=== PATIENT | male | born 1995 | race American Indian/Alaskan Native ===

== ENCOUNTER 2017-02-26 02:58 | Emergency (ER) | payer SELFPAY ==
[2017-02-26 03:53] VITALS: BP 114/71
== END 2017-02-26 09:00 | disposition left against medical advice (07) ==
LOC: ED 02:58
DX: R21 Rash and other nonspecific skin eruption (principal); Z53.21 Procedure and treatment not carried out due to patient leaving prior to being seen by health care provider

== ENCOUNTER 2018-01-06 03:38 | Emergency (ER) | payer SELFPAY | END 2018-01-06 03:40 | disposition left against medical advice (07) | LOC: ED 03:38 | DX: R07.9 Chest pain, unspecified (principal); Z53.21 Procedure and treatment not carried out due to patient leaving prior to being seen by health care provider ==

== ENCOUNTER 2019-03-06 23:12 | Emergency (ER) | payer OTHER ==
--- NOTE | 2019-03-07 03:47 | Emergency Department Report ---
<KEVIN BONILLA - Last Filed: 03/07/19 03:42> ED Male HPI - General Chief complaint: Urogenital-Male Stated complaint: BURN WHEN PEE Time Seen by Provider: 03/07/19 03:21 Source: patient Mode of arrival: Ambulatory Limitations: No Limitations - History of Present Illness Initial comments: 23-year-old -Citizen Of [place] male patient was department complaining of having some dysuria started about 4 weeks ago off and on associated with some scant white discharge, but unsure of his an STD of it is something that he's been experiencing at the has sexual intercourse. Reports no penile rashes. She reports no testicular swelling reports no inguinal pain reports no fever, chills, sweats, no hematuria, no no dysuria. He is an uncircumcised male has easily retractable foreskin prefaces good hygiene after interaction. States he has sex with his girlfriend who is previous girlfriend about 4 weeks ago was found to be playful and having head diagnosed with chlamydia and gonorrhea. They were treated, however, he found out that she actually did not get treated and had symptoms with her again is worried he may have come in contact with with the same STD about 4 weeks ago. MD Complaint: dysuria Severity: mild Quality: burning Consistency: constant Improves with: none Worsens with: none discharge. denies: urinary retention, blood in urine, nausea/vomiting, incontin ence - Related Data Previous Rx's Medication Instructions Recorded Last Taken Type Cyclobenzaprine [Flexeril] 10 mg PO TID PRN #30 tablet 12/17/18 Unknown Rx Menthol/Camphor [[place] 1 applicatio TP QID PRN #1 tube 12/17/18 Unknown Rx Ointment] Naproxen 500 mg PO BID PRN #30 tablet 12/17/18 Unknown Rx metroNIDAZOLE [Flagyl] 2,000 mg PO ONCE #4 tablet 03/07/19 Unknown Rx Allergies Allergy/AdvReac Type Severity Reaction Status Date / Time No Known Allergies Allergy Verified 12/17/18 04:16 ED Review of Systems Constitutional: denies: chills, fever Eyes: denies: eye pain, eye discharge, vision change ENT: denies: ear pain, throat pain Respiratory: denies: cough, shortness of breath, wheezing Cardiovascular: denies: chest pain, palpitations Endocrine: no symptoms reported Gastrointestinal: denies: abdominal pain, nausea, diarrhea Genitourinary: denies: urgency, dysuria Musculoskeletal: denies: back pain, joint swelling, arthralgia Skin: denies: rash, lesions Neurological: denies: headache, weakness, paresthesias Psychiatric: denies: anxiety, depression Hematological/Lymphatic: denies: easy bleeding, easy bruising ED Past Medical Hx - Past Medical History Additional medical history: GERD symptoms no Dx - Social History Smoking Status: Never Smoker Substance Use Type: None - Medications Home Medications: Home Medications Medication Instructions Recorded Confirmed Last Taken Type Cyclobenzaprine [Flexeril] 10 mg PO TID PRN #30 tablet 12/17/18 Unknown Rx Menthol/Camphor [[place] 1 applicatio TP QID PRN #1 tube 12/17/18 Unknown Rx Ointment] Naproxen 500 mg PO BID PRN #30 tablet 12/17/18 Unknown Rx metroNIDAZOLE [Flagyl] 2,000 mg PO ONCE #4 tablet 03/07/19 Unknown Rx ED Physical Exam - General Limitations: No Limitations General appearance: alert, in no apparent distress - Head Head exam: Present: atraumatic, normocephalic - Eye Eye exam: Present: normal appearance, PERRL, EOMI Pupils: Present: normal accommodation - ENT ENT exam: Present: normal exam, mucous membranes moist, TM's normal bilaterally - Neck Neck exam: Present: normal inspection, full ROM. Absent: tenderness, meningismus, lymphadenopathy, thyromegaly - Respiratory Respiratory exam: Present: normal lung sounds bilaterally. Absent: respiratory distress, wheezes, rales, chest wall tenderness, accessory muscle use, decreased breath sounds - Cardiovascular Cardiovascular Exam: Present: regular rate, normal rhythm. Absent: bradycardia, tachycardia, systolic murmur, diastolic murmur, rubs, gallop - GI/Abdominal GI/Abdominal exam: Present: soft, normal bowel sounds. Absent: distended, tenderness, guarding, hyperactive bowel sounds, hypoactive bowel sounds - Rectal Rectal exam: Present: deferred - exam: Present: other (no inguinal lymphadenopathy) - Extremities Exam Extremities exam: Present: normal inspection, full ROM, normal capillary refill - Back Exam Back exam: Present: normal inspection, full ROM. Absent: CVA tenderness (R), CVA tenderness (L) - Neurological Exam Neurological exam: Present: alert, oriented X3 - Psychiatric Psychiatric exam: Present: normal affect, normal mood - Skin Skin exam: Present: warm, dry, intact, normal color. Absent: rash ED Disposition Clinical Impression: Dysuria Disposition: DC-01 TO HOME OR SELFCARE Is pt being admited?: No Does the pt Need Aspirin: No Condition: Stable Instructions: Dysuria (ED) Prescriptions: metroNIDAZOLE [Flagyl] 2,000 mg PO ONCE #4 tablet Referrals: [facility] [Provider Group] - 3-5 Days [facility] [Outside] - 3-5 Days Forms: Work/School Release Form(ED) <SHERRIE DAMICO - Last Filed: 03/25/19 12:31> ED Review of Systems ROS: Stated complaint: BURN WHEN PEE Other details as noted in HPI ED Course Vital Signs 03/06/19 03/07/19 03/07/19 23:18 00:50 04:03 Temperature 98.5 F 98.5 F Pulse Rate 70 77 68 Respiratory 18 18 15 Rate Blood Pressure 108/69 108/69 O2 Sat by Pulse 100 100 100 Oximetry ED Medical Decision Making - Differential Diagnosis uti, std Critical care attestation.: If time is entered above; I have spent that time in minutes in the direct care of this critically ill patient, excluding procedure time. ED Disposition Is pt being admited?: No Does the pt Need Aspirin: No
[2019-03-07 19:54] VITALS: BP 108/69
== END 2019-03-07 04:05 | disposition home or self-care (01) ==
LOC: ED 23:12
DX: R30.0 Dysuria (principal)
CPT/HCPCS: 99282

== ENCOUNTER 2019-04-04 11:21 | Emergency (ER) | payer SELFPAY ==
[2019-04-04 11:27] VITALS: BP 122/81
--- NOTE | 2019-04-04 11:27 | Emergency Department Report ---
Chief Complaint: Urogenital-Male Stated Complaint: URINATION SWAIN Time Seen by Provider: 04/04/19 11:26 - HPI History of Present Illness: This is a 23 y.o. male that presents to the ER with dysuria and penile discharge for 1 month. Patient states he was seen in this ER 1 month ago and prescribed metronidazole. He completed all medication and symptoms never improved. He reports white penile discharge and dysuria. He denies testicular swelling, inguinal pain, fever, chills, sweats, hematuria, back pain, or testicular pain. - ROS Review of Systems: : penile discharge and dysuria. - Exam Vital Signs: Vital Signs 04/04/19 11:26 Temperature 98.1 F Pulse Rate 70 Respiratory 16 Rate Blood Pressure 122/81 O2 Sat by Pulse 99 Oximetry Physical Exam: GENERAL: The patient is well looking, in no acute distress. HEENT: Atraumatic and normocephalic. Pupils are equal, round, reactive to light, and accommodation. Extraocular movements are intact. There is no icterus, cyanosis, or pallor of the conjunctivae. Tympanic membranes normal bilaterally. Nasal turbinates are clear without exudates. Sinuses nontender to percussion. Posterior pharynx is normal. No exudates are noted. CHEST: Air entry is adequate bilaterally with no rhonchi, and crackles. HEART: Sounds 1 and 2 are heard and are normal. Regular rate and rhythm, no tac hycardic, murmurs, gallops, or rubs. ABDOMEN: Soft and nontender. Bowel sounds are present and normal. There is no hepatosplenomegaly. SKIN: Without rash. EXTREMITIES: Without edema, cyanosis, or clubbing. MSE screening note: Focused history and physical exam performed. Due to findings the following was ordered: ED Medical Decision Making - Medical Decision Making This is a 23-year-old -[place] male who presents with penile discharge and dysuria for 1 month. Patient was examined by me. Vitals are stable and in no acute distress. Denies testicular swelling or pain. Patient treated for trichomoniasis 1 month ago. This is a non-emergent issue. Patient given list of clinics to follow up with. Discharged home in stable condition. Discussed prevention options. F/U with PCP or Health Department. ED Disposition for MSE Clinical Impression: Possible exposure to STD Disposition: MED SCREENING EXAM-LEFT Is pt being admited?: No Does the pt Need Aspirin: No Condition: Stable Instructions: Safe Sex (ED), Sexually Transmitted Diseases (ED) Additional Instructions: Follow up with a primary care provider or urgent care from the list provided to you for full work-up and treatment. Referrals: NELIDA HERNANDEZ MD [Primary Care Provider] - 3-5 Days [facility] [Outside] - 3-5 Days [facility] [Outside] - 3-5 Days [facility] [Outside] - 3-5 Days Time of Disposition: 12:03
== END 2019-04-04 12:10 | disposition left against medical advice (07) ==
LOC: ED 11:21
DX: R30.0 Dysuria (principal); Z20.2 Contact with and (suspected) exposure to infections with a predominantly sexual mode of transmission
CPT/HCPCS: 99281